=== PATIENT | female | born 1960 | race African-American/Black ===

== ENCOUNTER → 2017-06-13 | Outpatient (CLI) | payer OTHER, BC ==
--- NOTE | ~2017-06-13 | CNG ---
[facility] [address] [place] [address] CYTO-NONGYN REPORT PROCEDURE Name: JERICA QUEEN Room #: REG [facility] M.Daniel.#: [id number] Admission: 06/13/17 Date of : 64 Discharge: Report #: [id number] Path Case #: [id number] CYTOPATHOLOGY REPORT COLLECTION DATE: 06/13/2017 RECEIVED DATE: 06/13/2017 SUBMITTING PHYS: Dr. Bereket Garcia OTHER PHYS: Dr. Maria Isabel Srivastava CLINICAL HISTORY: Thyroid nodule. SPECIMEN(S) RECEIVED: A.US guided Fine needle aspiration, Left superior/Isthmus thyroid nodule B.US guided Fine needle aspiration, Left superior/Isthmus mass cyst aspiration cell block only C.US guided Fine needle aspiration, Left middle/inferior mass * * * * * * * * * * * * FINAL DIAGNOSIS: A. US guided Fine needle aspiration, Left superior/Isthmus thyroid nodule: - Vincent category: Benign - Cystic lesion consisting of thyroid follicular cells, macrophages and scant colloid in a background of lymphocytic thyroiditis, favor adenomatoid nodule. B. US guided Fine needle aspiration, Left superior/Isthmus mass cyst aspiration cell block only: - Vincent category: Benign - Cystic lesion consisting of thyroid follicular cells, macrophages and scant colloid, favor adenomatoid nodule. C. US guided Fine needle aspiration, Left middle/inferior mass: - Vincent category: Benign - Cystic lesion consisting of thyroid follicular cells, macrophages and scant colloid in a background of lymphocytic thyroiditis, favor adenomatoid nodule. COMMENT: This case is co-reviewed by Dr. Adamaris Todd. PATHOLOGIST: Aaron George M.D. REPORT ELECTRONICALLY SIGNED BY: Aaron George M.D. DATE/TIME: 06/14/2017 15:14 * * * * * * * * * * * * GROSS PATHOLOGY: A. US guided Fine needle aspiration, Left superior/Isthmus thyroid nodule: The specimen is labeled "Jerica uQeen" and consists of two fixed slides, two air dried slides. Fifteen mL of cloudy pink fluid in fixative from the needle rinse is also submitted and [address] [place] [id number] [place] [address] CYTO-NONGYN REPORT PROCEDURE Name: JERICA QUEEN Room #: [facility].#: [id number] Admission: 06/13/17 Date of : 64 Discharge: Report #: [id number] Path Case #: [id number] ThinPrep slide and a alcohol fixed cell block were prepared from this material. Also received is the RNARetain vial labeled with (Left superior/isthmus mass) which will be held for molecular studies if needed. B. US guided Fine needle aspiration, Left superior/Isthmus mass cyst aspiration cell block only: The specimen is submitted fixed in formalin, labeled "Jerica Queen". Received by the Cytology Department is 30 mL of red fluid. One cell block was prepared. C. US guided Fine needle aspiration, Left middle/inferior mass : The specimen is labeled "[facility]" and consists of three fixed slides, three air dried slides. Fifteen mL of clear red fluid in fixative from the needle rinse is also submitted and one ThinPrep slide and a alcohol fixed cell block were prepared from this material. Also received is the RNARetain vial labeled with (Left middle/inferior mass) which will be held for molecular studies if needed. (clt 06.13.2017) RISK CONSULTING TREASURY DIRECTOR(S): JOSE ALFREDO Duong([facility]) INITIAL CPT CODE(S): A; 12069, 92824 B; 95714 C; 86994, 15898 Professional services performed by [facility] at [facility] [address], [place] [address] Technical services performed by [facility] at [address] [place] [address]., [address], [place] [address]. [facility] [address] [place] [address], [address] [place] [address] PHONE: [phone] DIRECTOR: Gerry Marsh M.D. * * * END OF REPORT * * *
== END | disposition home or self-care (01) ==
LOC: ULTRA 08:59
DX: D34 Benign neoplasm of thyroid gland (principal)